=== PATIENT | male | born 1995 | race Caucasian/White ===

== ENCOUNTER 2017-08-13 12:10 | Emergency (ER) | payer BC, MEDICAID ==
[~2017-08-13] VITALS: Ht 185.4 cm; Wt 100.0 kg
[2017-08-13] MEDS ORDERED: IBUPROFEN 800MG TABLET PO ONE (13:30)
[2017-08-13 14:18] VITALS: BP 128/70
== END 2017-08-13 14:49 | disposition home or self-care (01) ==
LOC: ER 13:28
DX: S89.82XA Other specified injuries of left lower leg, initial encounter (principal); F12.10 Cannabis abuse, uncomplicated; F17.200 Nicotine dependence, unspecified, uncomplicated; X50.1XXA Overexertion from prolonged static or awkward postures, initial encounter; Y93.89 Activity, other specified; Y92.838 Other recreation area as the place of occurrence of the external cause
CPT/HCPCS: 73562; 99284

== ENCOUNTER 2021-04-05 22:20 | Emergency (ER) | payer SELFPAY ==
[~2021-04-05] VITALS: Ht 177.8 cm; Wt 91.0 kg
[2021-04-05] MEDS ORDERED: MAGNESIUM/ALUMINUM HYDROXIDE/SIMETHICONE 30ML UDC PO STA (23:17)
[2021-04-05] MEDS ORDERED: VISCOUS LIDOCAINE 2% 15 ML UDC PO STA (23:17)
[2021-04-05] MEDS ORDERED: ONDANSETRON HCL 4MG/2ML INJ IV STA (23:17)
[2021-04-05] MEDS ORDERED: FAMOTIDINE 20MG/2ML VIAL IV STA (23:17)
[2021-04-05] MEDS ORDERED: SODIUM CHLORIDE 0.9% 1,000 ML IV ONE (23:30)
[2021-04-05 23:38] LABS: BASOPHILS % 0.2 % (0.0-2.0); EOSINOPHILS % 0.4 % (0.0-5.0); HEMATOCRIT. 41.3 % (42.0-52.0); HEMOGLOBIN. 14.2 g/dL (14.0-18.0); LYMPHOCYTES % 14.3 % (20.0-50.0); MEAN CORPUSCULAR HEMOGLOBIN 31.7 pg (28.0-32.0); MEAN PLATELET VOLUME 7.5 fl (7.4-10.4); MONOCYTES % 8.4 % (2.0-8.0); NEUTROPHILS % 76.7 % (40.0-76.0); PLATELET 235 x1000/uL (130-400); RED BLOOD CELL COUNT 4.48 mill/uL (4.7-6.1); RED CELL DISTRIBUTION WIDTH 13.6 % (11.6-14.6)
[2021-04-05 23:46] LABS: CHLORIDE 102 mEq/L (98-107)
[2021-04-05 23:47] LABS: INR 1.1; PROTHROMBIN TIME 11.4 sec (9.6-11.0)
[2021-04-06 01:14] VITALS: BP 115/79
[2021-04-06] MEDS ORDERED: FAMO-135 MT (01:15)
== END 2021-04-06 01:42 | disposition home or self-care (01) ==
LOC: ER 22:20
DX: R10.13 Epigastric pain (principal); R11.2 Nausea with vomiting, unspecified; F12.10 Cannabis abuse, uncomplicated; Z79.899 Other long term (current) drug therapy; E86.0 Dehydration
CPT/HCPCS: 36415; 80053; 83690; 85025; 85610; 96361; 96374; 96375; 99284; J2405; J3490; J7030

== ENCOUNTER 2025-01-15 01:08 | Emergency (ER) | payer SELFPAY ==
[~2025-01-15] VITALS: Ht 177.8 cm; Wt 98.0 kg
[~2025-01-15 01:08] MED LIST: FAMO-135 MT
[2025-01-15 01:11] VITALS: O2SAT 99
[2025-01-15 02:13] VITALS: BP 117/81; PULSE 69; RESP 19; TEMP 36.9; O2SAT 94
== END 2025-01-15 03:06 | disposition left against medical advice (07) ==
LOC: ER 01:08
DX: F10.129 Alcohol abuse with intoxication, unspecified (principal); Y90.9 Presence of alcohol in blood, level not specified
CPT/HCPCS: 99283